=== PATIENT | male | born 1950 | race Caucasian/White ===

== ENCOUNTER 2020-11-13 13:47 | Inpatient (IN) | payer OTHER ==
--- OUTSIDE RECORDS SUMMARY | 2020-11-13 13:50 | XMS REPORT | Continuity of Care Document ---
:1950 Author Organization [facility] t Address [address] [place] [address] Care Team Providers Name Role Phone Ramona CARDENAS Primary Care Physician Ramona CARDENAS Attending Clinician Problems Condition Condition Condition Status Onset Resolution Last Treating Co mments Source Name Details Category Date Date Treatment Clinician Date Uncontroll Uncontroll Diagnosis Active [facility] ed type 2 ed type 2 [facility] - diabetes diabetes Memori a mellitus mellitus l without without Outpati complicati complicati en t on, on, Clinics without without long-term long-term current current use of use of insulin insulin Neck pain Neck pain Problem [facility] Hyperlipid Hyperlipid Problem Active [facility] Obesity Obesity Problem Active [facility] (BMI (BMI [facility] - 35.0-39.9 35.0-39.9 Rodney edgard without without l comorbidit comorbidit Ou tpati y) y) ent Clinics Allergic Allergic Problem [facility] Hypertensi Hypertensi Diagnosis Active [facility] on, on, [facility] - unspecifie unspecifie Me moria d type d type l Outpati ent Clinics Type 2 Type [address] [facility] diabetes diabetes [facility] - mellitus mellitus Memori a l [facility] ent Clinics Chronic Chronic Diagnosis Active [facility] kidney kidney [facility] - disease, disease, Memori a unspecifie unspecifie l d CKD d CKD Outpati stage stage ent Clinics Plantar Plantar Problem Active [facility] fasciitis, fasciitis, Yennifer kes - bilateral bilateral Rodney edgard l Outpati ent Clinics Other Other Problem Active [facility] chronic chronic [facility] - pain pain Memoria l [facility] ent Clinics Low back Low back Problem Active [facility] Acute pain Acute pain Problem Active [facility] of right of right [facility] - shoulder shoulder Memori a l [facility] ent Clinics Rash and Rash and Diagnosis Active [facility] nonspecifi nonspecifi Yennifer kes - c skin c skin Memoria eruption eruption l [facility] ent [facility] Allergies, Adverse Reactions, Alerts Allergy Allergy Status Severity Reaction(s) Onset Inactive Treating Comm ents Source Name Type Date Date Clinician penicill Adverse Active Info Not [facility] Reaction Available [facility] Social History Social Habit Start Date Stop Date Quantity Comments Source Sex Assigned At [birth year] [facility] ethodist 00:00:00 00:00:00 Medications Ordered Filled Start Stop Current Ordering Indication Dosage Frequency Signature Comments Components Source Medication Medication Date Date Medication? Clinician (SIG) Name Name Ketoconazol Ketoconazol 2019-0 2020- No Lyric [address] [facility] e e 03-21 Millender applicatio Dawna es - 00:00: 00:00 n to Memoria 00 :00 affected l [facility] Losartan Losartan 2017- Yes Lyric 1/[address] [facility] Potassium Potassium 2-03 Millender [facility] - 00:00: Memoria 00 l [facility] ent Clinics Nasacort AQ Nasacort AQ Yes Lyric not [facility] Mill[facility] defined [facility] Triamcinolo Triamcinolo Yes Lyric not [facility] ne ne Millender defined [facility] - Acetonide(N Acetonide(N M emoria jd) jd) l [facility] ent Clinics Januvia Januvia Yes Lyric [address] [facility] [address] [facility] Simvastatin Simvastatin Yes Lyric [address] [facility] [address] Millender in the [facility] - evening Memoria l [facility] ent Clinics Sudafed Sudafed Yes Lyric [address] [facility] [address] Millender as needed [facility] Zetia Zetia Yes Lyric [address] [facility] [facility] Duexis Duexis Yes Lyric [address] [facility] Metformin Metformin Yes Lyric [address] [facility] HCl HCl [facility] Aspir-Low Aspir-Low Yes Lyric [address] [facility] [address] [facility] Jardiance Jardiance 2020- No Lyric [address] [facility] [address] 08- Millender [facility] - 00:00 Memoria :00 l Outpati ent Clinics Procedures Procedure Date / Time Performed Performing Clinician [facility] e US VASCULAR SCREENING 2020-09-14 08:59:47 [facility] HEART SCAN PLUS CT HEART SCAN PLUS W 2020-09-14 07:49:18 [facility] PHYSICIAN ORDER Plan of Care Planned Activity Planned Date Details Comments Source Future Scheduled 2021-02-10 INFLUENZA VACCINE [facility] 00:00:00 [code = INFLUENZA VACCINE] Future Scheduled 2015 65+ PNEUMOCOCCAL [facility] Test 00:00:00 VACCINE (1 of 1 - PPSV23) [code = 65+ PNEUMOCOCCAL VACCINE (1 of 1 - PPSV23)] Future Scheduled 2000 COLONOSCOPY SCREENING [facility] 00:00:00 [code = COLONOSCOPY SCREENING] Future Scheduled 2000 [facility] [code = SHINGLES VACCINES (#1)] Future Scheduled 1968 Hepatitis C screening [facility] Test 00:00:00 (procedure) [code = 629257924] Future Scheduled 1966 COVID-19 VACCINE (1) [facility] 00:00:00 [code = COVID-19 VACCINE (1)] Encounters Start End Encounter Admission Attending Care Care Encounter Source Date/Time Date/Time Type Type Clinicians Facility Department ID 2020-09-14 2020-09-14 Outpatient [facility] [id number] [place] 00:00:00 00:00:00 [facility] [address] 2020-09-14 2020-09-14 Outpatient [facility] [id number] [place] 00:00:00 00:00:00 [facility] [address] 2020-03-21 2020-03-21 [facility] [id number] [address] 08:20:00 08:20:00 t [facility] Medicine Outpati ent Clinics 2020-03-13 2020-03-13 [facility] [id number] [address] 15:17:00 15:17:00 t [facility] Medicine Outpati ent Clinics 2019-10-31 2019-10-31 [facility] [id number] 08:30:00 08:30:00 t [facility] Medicine Outpati ent Clinics 2019-05-18 2019-05-18 [facility] [id number] 10:40:00 10:40:00 t [facility] Medicine Outpati ent Clinics 2019-03-09 2019-03-09 [facility] [id number] 16[facility]20:00 16:20:00 [facility] Medicine Outpati ent Clinics 2018-08-20 2018-08-20 [facility] [id number] [facility] 10:13:00 10:13:00 [facility] Medicine Outpati ent Clinics 2018-07-07 2018-07-07 [facility] [id number] [address] 23:17:00 23:17:00 [facility] Medicine Outpati ent Clinics 2018-07-07 2018-07-07 [facility] [id number] 16:30:00 16:30:00 [facility] Medicine Outpati ent Clinics 2018-01-01 2018-01-01 [facility] [id number] 10:00:00 10:00:00 [facility] Medicine Outpati ent Clinics Results Test Description Test Time Test Comments Results Result Sourc e Comments Pv vascular Interface, Radiology Deb mon screening heart 5 Results In - [facility] scan plus (self 11:57:00 09/14/2020 11:57 AM pay) [facility] Vascular Diagnostic Laboratory Screening Report [id number] [address] Pat.Name: MEGAN RIAN.ID: [id number] .Date: 09/14/2020 Refer.: KM GREENE MD Exam Time: 8:03:00 AM Study Type:Screening Age: 11 1950,70Y Sex: MALE Sonogrphr: Marichuy Nunez RVT Pat. Stat.:Outpatient Room: F9 Tape Vol: ym, Echo Event ID:[id number] Order ID: [id number] Reason for Study:Screening. Procedures: Ankle/brachial pressures, Colorflow, Grayscale/2D,Non-imagi ng continuous wave Doppler, Pulsed wave Doppler S UMMARY: V ascular Screening ResultsScreening results are brief snapshots designed to detect functionalabnormal findings of carotid artery disease, abdominal aorticaneurysms (AAA), and peripheral arterial disease (PAD). Please Note: Screening results do not replace a complete vascularexamination.Ca rotid ArteryRight Internal Carotid Artery (X) Abnormal: Plaque present but no stenosis Left Internal Carotid Artery (X) Abnormal: Plaque present but no stenosis.Abdominal Aorta(X) Normal: No evidence of aneurysmal dilatation (less than 3cm).Ankle/Brachial Index(X) Normal: No evidence of peripheral arterial disease (PAD).Recommendations Your results are ABNORMAL. Please take these results to yourphysician and discuss them in further detail. If you do not have a physician you can call our [facility] to schedule an appointment at [phone].--------- -----FINDINGS:-------- ------Signed 09/14/2020 11:57 Adrian Hinkle MD, RPVI
[2020-11-13 14:47] VITALS: BMI 35.5
[2020-11-13] MEDS ORDERED: ACETAMINOPHEN 325 MG TABLET PO PRN (15:00)
[2020-11-13] MEDS ORDERED: ONDANSETRON 4 MG (ODT) TAB PO PRN (15:00)
[2020-11-13] MEDS ORDERED: POLYETHYL GLY 3350 17 GM/DOSE PO PRN (15:00)
[2020-11-13] MEDS ORDERED: LOPERAMIDE HCL 2 MG CAPSULE PO PRN (15:00)
[2020-11-13] MEDS ORDERED: ONDANSETRON 4 MG/2 ML VIAL IV PRN (15:00)
[2020-11-13] MEDS ORDERED: GLUCAGON 1 MG/VIAL IM PRN (15:19)
[2020-11-13] MEDS ORDERED: D50W 25 GM/50 ML SYRINGE IV PRN (15:19)
[2020-11-13 16:15] LABS: Absolute Lymphocytes (CBC) 1.7 K/uL (0.7-4.9); Basophils % 0.5 % (0-1.3); Hematocrit 42.4 % (39.6-49.0); Lymphocytes % 12.5 % (15.3-44.8); MPV 7.3 fL (7.6-11.3)
[2020-11-13] MEDS: INSULIN -REGULAR HUMAN 50 UNIT/0.5 ML ML SQ SCH ×2 (16:30→20:52)
[2020-11-13 16:33] LABS: Protime INR 1.45
[2020-11-13 16:59] LABS: Albumin 3.5 g/dL (3.4-5.0); Bilirubin Direct 0.2 mg/dL (0-0.2); Bilirubin Total 0.5 mg/dL (0.2-1.0); Magnesium 2.2 mg/dL (1.8-2.4); Phosphorus 2.8 mg/dL (2.5-4.9); Potassium 3.5 mmol/L (3.5-5.1); Protein, Total 7.4 g/dL (6.4-8.2); Thyroid Stimulating Hormone 1.54 uIU/mL (0.360-3.740)
[2020-11-13 17:25] LABS: Urine Appearance CLEAR (Clear); Urine Bilirubin NEGATIVE (Negative); Urine Blood NEGATIVE (Negative); Urine Color ORANGE (Yellow); Urine Glucose NEGATIVE (Negative); Urine Protein NEGATIVE (Negative); Urine Specific Gravity <=1.005 (1.005-1.030)
[2020-11-13 17:40] LABS: Urine Microscopic Reflex ORDER UMIC
[2020-11-13 17:48] LABS: Urine Bacteria <20 /HPF (NONE SEEN); Urine RBC <5 /HPF (NONE SEEN)
--- NOTE | 2020-11-13 18:25 | RAD REPORT ---
EXAM DESCRIPTION: CT - Chest Abdomen Pelvis W Cont - 11/13/2020 5:58 pm CLINICAL HISTORY: Chest and abdominal pain COMPARISON: None TECHNIQUE: Computed axial tomography of the chest, abdomen and pelvis was obtained. 100 cc Isovue-30 0 was administered intravenously. Oral contrast was not requested. This limits evaluation of bowel. All CT scans are performed using dose optimization technique as appropriate and may include automated exposure control or mA/KV adjustment according to patient size. FINDINGS: Lungs are clear. No mediastinal or hilar lymphadenopathy. No pleural effusion. No pericardial effusion. Fatty liver. Small hepatic cyst. Spleen, pancreas, adrenals and kidneys unremarkable Diverticula stem from the colon without evidence of diverticulitis. The prostate gland is mildly to moderately enlarged. Spondylosis involves the lumbar spine resulting spinal stenosis Umbilical hernia contains fat. The neck measures 18 millimeters Mild gallbladder distention IMPRESSION: Mild gallbladder distention
--- NOTE | 2020-11-13 18:30 | RAD REPORT ---
EXAM DESCRIPTION: Jenny Stapleton (2 Views)11/13/2020 6:04 pm CLINICAL HISTORY: Sepsis COMPARISON: None FINDINGS: The lungs appear clear of acute infiltrate. The heart is normal size IMPRESSION: No acute abnormalities displayed
[2020-11-13] MEDS: NACHLORIDE 0.45% 1,000 ML IV SCH (18:52)
[2020-11-13] MEDS: CIPROFLOXACIN 400mg IV 400 MG/200 ML BAG IV SCH (18:52)
[2020-11-13] MEDS: TRAMADOL HCL 50 MG TAB PO PRN (20:49)
[2020-11-13] MEDS: DIPHENHYDRAMINE 25 MG TAB/CAP PO PRN (20:53)
--- NOTE | 2020-11-13 21:32 | P.HP ---
Certification for Inpatient Patient admitted to: Observation Practitioner: I am a practitioner with admitting privileges, knowledge of patient current condition, hospital course, and medical plan of care. Services: Services provided to patient in accordance with Admission requirements found in Title 42 Section 412.3 of the Code of Federal Regulations Patient History Date of Service: 11/13/20 Reason for admission: FEVER, CHILLS, DIAPHORESIS History of Present Illness: MR. RAIN HAS UTI SYMPTOMS AND DAUGHTER CALLED HE DID NOT IMPROVE ON CIPRO I GAVE HIM TWO DAYS AGO. HE IS FATIGUED AND CONTINUES TO HAVE FEVER. DAUGHTER IS A NURSE. HE IS A DIABETIC. Allergies Penicillins Allergy (Verified 05/22/16 11:25) Nausea/Vomiting Home Medications: Aspirin [Aspirin EC 81 MG] 81 mg PO DAILY 05/17/14 Ezetimibe/Simvastatin [Vytorin 10-20 mg Tablet] 1 each PO DAILY 05/17/14 Metformin ER [Glucophage ER*] 500 mg PO TID 05/17/14 Cinnamon Bark [Cinnamon] 500 mg PO DAILY 05/22/16 Sitagliptin Phosphate [Januvia*] 50 mg PO DAILY 05/22/16 - Past Medical/Surgical History Has patient received pneumonia vaccine in the past: Yes Diabetic: Yes -: On QUINTON to protect kidneys -: Hypercholesterolima - Social History Smoking Status: Current every day smoker Alcohol use: No CD- Drugs: No Caffeine use: Yes Place of Residence: Home Review of Systems 10-point ROS is otherwise unremarkable General: Weakness, Malaise Physical Examination - Vital Signs Temperature: 97.3 F Blood Pressure: 112/55 Pulse: 71 Respirations: 16 Pulse Ox (%): 95 - Physical Exam General: Oriented x3, Mild distress HEENT: Atraumatic, PERRLA, Mucous membr. moist/pink, EOMI, Sclerae nonicteric Neck: Supple, 2+ carotid pulse no bruit, No LAD, Without JVD or thyroid abnormality Respiratory: Clear to auscultation bilaterally, Normal air movement Cardiovascular: Regular rate/rhythm, Normal S1 S2 Gastrointestinal: Normal bowel sounds, No tenderness Musculoskeletal: No tenderness Integumentary: No rashes Neurological: Normal gait, Normal speech, Normal strength at 5/5 x4 extr, Normal tone, Normal affect Lymphatics: No axilla or inguinal lymphadenopathy - Studies Laboratory Data (last 24 hrs) 11/13/20 15:54: Sodium 137, Potassium 3.5, BUN 20 H, Creatinine 1.12, Glucose 122 H, Phosphorus 2.8, Magnesium 2.2, Total Bilirubin 0.5, AST 16, ALT 30, Alkaline Phosphatase 56 11/13/20 15:54: PT 16.7 H, INR 1.45, APTT 27.7 11/13/20 15:54: WBC 13.70 H, Hgb 13.8, Hct 42.4, Plt Count 203 Assessment and Plan - Problems (Diagnosis) (1) UTI (urinary tract infection) Current Visit: Yes Status: Acute Qualifiers: Urinary tract infection type: acute cystitis Hematuria presence: without hematuria Qualified Code(s): N30.00 - Acute cystitis without hematuria (2) Dehydration Current Visit: Yes Status: Acute Plan: CIPRO IV. CT SCAN NEG FOR PYELONEPHRITIS BUT SHOWS GALL BLADDER DISTENSION. (3) Diabetes Current Visit: Yes Status: Acute Plan: A1C IS 7. Qualifiers: Diabetes mellitus type: type 2 (4) Gallbladder disease Current Visit: Yes Status: Acute Plan: SYMPTOMS OF INFECTION BUT ABDOMEN IS NOT TENDER. ORDER SONOGRAM IN AM. DIABETICS CAN HAVE ACALCULUS CHOLECYSTITIS. - Advance Directives Does patient have a Living Will: Yes Does patient have a Durable POA for Healthcare: Yes
[2020-11-13 22:09] LABS: MPV 7.3 fL (7.6-11.3)
[2020-11-13 22:14] LABS: Platelet Estimate ND
[2020-11-14] MEDS: CIPROFLOXACIN 400mg IV 400 MG/200 ML BAG IV SCH ×3 (00:14→20:29)
[2020-11-14] MEDS: NACHLORIDE 0.45% 1,000 ML IV SCH ×2 (04:20→15:52)
[2020-11-14 05:02] LABS: Absolute Lymphocytes (CBC) 1.6 K/uL (0.7-4.9); Basophils % 0.2 % (0-1.3); Hematocrit 39.3 % (39.6-49.0); Lymphocytes % 13.8 % (15.3-44.8); MPV 7.4 fL (7.6-11.3); RBC Red Blood Cell Count 4.34 M/uL (4.33-5.43)
[2020-11-14 05:09] LABS: Magnesium 2.2 mg/dL (1.8-2.4); Potassium 3.9 mmol/L (3.5-5.1)
[2020-11-14] MEDS: INSULIN -REGULAR HUMAN 50 UNIT/0.5 ML ML SQ SCH ×4 (07:30→21:00)
[2020-11-14] MEDS: ENOXAPARIN 40 MG/0.4 ML SQ SCH (08:06)
[2020-11-14] MEDS ORDERED: POTASSIUM 25 MEQ EFFERV TAB PO ONE (09:34)
--- NOTE | 2020-11-14 10:10 | RAD REPORT ---
EXAM DESCRIPTION: US - Abdomen Exam Complete - 11/14/2020 9:22 am CLINICAL HISTORY: Abdominal pain COMPARISON: CT November 13, 2020 FINDINGS: The liver has an increased echotexture. Several cysts. The largest measures 17 millimeters A gallstone is not seen. The gallbladder wall is not thickened. The biliary tree is normal caliber. T he gallbladder is mildly distended. The pancreas is normal in size and echotexture The right kidney measures 12 centimeters with a normal echotexture. The left kidney measures 12 centimeters with a normal echotexture. The spleen measures 12 centimeters. The abdominal aorta and inferior vena cava appear unremarkable IMPRESSION: Increased hepatic echotexture consistent with fatty infiltration Mild gallbladder distention. A stone is not visualized
[2020-11-14] MEDS: TRAMADOL HCL 50 MG TAB PO PRN ×2 (10:13→20:29)
[2020-11-14] MEDS ORDERED: D50W 25 GM/50 ML VIAL IV PRN (15:00)
--- NOTE | 2020-11-14 19:25 | CON ---
Date of Consultation: 11/14/2020 Reason For Consultation: Gallbladder disease. History Of Present Illness: This is a case of a male who was admitted to the hospital with complaint s of fever, chills, diaphoretic. Initially, he was being treated for the possible UTI with antibioti cs. Since the symptoms did not improve, the patient was admitted to the hospital for continued obser vation and working the differential diagnosis. During the workup, the patient had a CAT scan done th at shows a distended gallbladder, and the working diagnosis of probably cholecystitis was then introd uced, and a surgical consult was obtained for more evaluation and advice. Past Medical History: Includes diabetes. Allergies: PENICILLIN. Medications: Aspirin, Vytorin, Glucophage. Social History: He smokes. He does not drink alcohol. He was counseled about smoking cessation. He never had a colonoscopy, although he was advised the importance of having colonoscopies. Review of Systems: As above. He denies at this moment any shortness of breath. Denies any melena. He states some urin yuli frequency, hesitancy and urgency. Ten points otherwise unremarkable. Physical Examination: General: The patient is awake and alert. HEENT: Pupils are equal and reactive, anicteric. Neck: Supple. Chest: Clear. Abdomen: Soft and depressible. He describes the pain as being over the upper abdomen, epigastric, l eft upper quadrant, also some tenderness in the suprapubic left lower quadrant area. There is no gua rding or rebound. Extremities: Good capillary refill. Rectal: Fair. Laboratory Data: Blood work shows WBC count of 13, with hemoglobin of 13.8. INR is 1.45, potassium is 3.9, glucose 136, total bilirubin of 0.5. CAT scan of the abdomen and pelvis interpreted by Dr. Bee yun as prostate gland is mildly to moderately enlarged, his umbilical hernia, mild distention of t he gallbladder. The patient had an abdominal ultrasound that shows a fatty liver and shows mild gall bladder distention. Stone is not visualized. Assessment: A 70-year-old patient with multiple problems. He came with the clinical symptoms of naida ng diaphoretic and fever, also with lower abdominal symptoms that I agree with Dr. Greene suspect for a UTI and complications from that. At the same time, patient has on and off abdominal pain in the up per abdomen, and then we found the gallbladder to be distended. With all this pictures and trying to rule out any source of sepsis, then, I believe a HIDA scan should be ordered too. We are looking fo r cholecystitis. We are looking for biliary dyskinesia. I will follow the patient with you and give more recommendations as the case develops. FESTUS/JESSICA Voice ID: [id number] Report ID: [id number]
--- NOTE | 2020-11-14 19:56 | P.PN ---
Subjective Date of Service: 11/14/20 Chief Complaint: FEVER, CHILLS, DIAPHORESIS Subjective: Improving HE IS STABLE CLINICALLY. HE HAS NO PAIN IN ABDOMEN NOW. Review of Systems 10-point ROS is otherwise unremarkable General: Weakness Physical Examination - Vital Signs Temperature: 97.7 F Blood Pressure: 135/61 Pulse: 76 Respirations: 20 Pulse Ox (%): 96 - Physical Exam General: Oriented x3, Mild distress, Obese HEENT: Atraumatic, PERRLA, EOMI Neck: Supple, JVD not distended Respiratory: Clear to auscultation bilaterally, Normal air movement Cardiovascular: Regular rate/rhythm, Normal S1 S2 Gastrointestinal: Normal bowel sounds, No tenderness Musculoskeletal: No tenderness Integumentary: No rashes Neurological: Normal speech, Normal tone, Normal affect Lymphatics: No axilla or inguinal lymphadenopathy - Studies Laboratory Data (last 24 hrs) 11/14/20 04:17: Sodium 136, Potassium 3.9, BUN 15, Creatinine 0.89, Glucose 136 H, Magnesium 2.2 11/14/20 04:17: WBC 12.00 H, Hgb 13.1 L, Hct 39.3 L, Plt Count 183 11/13/20 21:26: Plt Count 200 Microbiology Data (last 24 hrs): 11/13/20 15:54 Blood - Blood Gram Stain - Final Medications List Reviewed: Yes Assessment And Plan - Current Problems (Diagnosis) (1) UTI (urinary tract infection) Current Visit: Yes Status: Acute Plan: IV ABX. STABLE. CULTURE PENDING. Qualifiers: Urinary tract infection type: acute cystitis Hematuria presence: without hematuria Qualified Code(s): N30.00 - Acute cystitis without hematuria (2) Dehydration Current Visit: Yes Status: Acute Plan: CIPRO IV. CT SCAN NEG FOR PYELONEPHRITIS BUT SHOWS GALL BLADDER DISTENSION. (3) Diabetes Current Visit: Yes Status: Acute Plan: A1C IS 7. Qualifiers: Diabetes mellitus type: type 2 (4) Gallbladder disease Current Visit: Yes Status: Acute Plan: SYMPTOMS OF INFECTION BUT ABDOMEN IS NOT TENDER. ORDER SONOGRAM IN AM. DIABETICS CAN HAVE ACALCULUS CHOLECYSTITIS. SONOGRAM CONFIRMS ENLARGED GB HIDA SCAN PENDING. DR. DURAND CONSULTED.
[2020-11-14] MEDS: ROSUVASTATIN 10 MG TAB PO SCH (20:29)
[2020-11-14] MEDS: DIPHENHYDRAMINE 25 MG TAB/CAP PO PRN (20:29)
[2020-11-14] MEDS ORDERED: HOME MED 1 EA UNK (Rosuvastatin Calcium [Rosuvastatin Calcium] 20 MG Tablet) PO SCH (21:00)
[2020-11-15] MEDS: NACHLORIDE 0.45% 1,000 ML IV SCH ×2 (04:17→20:20)
[2020-11-15 05:32] LABS: Absolute Lymphocytes (CBC) 1.4 K/uL (0.7-4.9); Basophils % 0.2 % (0-1.3); Hematocrit 39.9 % (39.6-49.0); Lymphocytes % 17.2 % (15.3-44.8); MPV 7.5 fL (7.6-11.3)
[2020-11-15 05:40] LABS: BUN Blood Urea Nitrogen 11 mg/dL (7-18); Bicarbonate 27 mmol/L (21-32); Glucose Level 143 mg/dL (74-106); Magnesium 2.2 mg/dL (1.8-2.4); Potassium 3.8 mmol/L (3.5-5.1); Sodium Level 139 mmol/L (136-145)
[2020-11-15] MEDS: INSULIN -REGULAR HUMAN 50 UNIT/0.5 ML ML SQ SCH ×4 (07:30→21:00)
[2020-11-15] MEDS ORDERED: HOME MED 1 EA UNK (Sitagliptin Phos/Metformin Hcl [Janumet 50-1,000 Mg Tablet] Tablet) PO SCH (09:00)
[2020-11-15] MEDS: Cinnamon Bark 500 MG Capsule PO SCH (09:00)
[2020-11-15] MEDS ORDERED: HOME MED 1 EA UNK (Losartan Potassium [Cozaar] 25 MG Tablet) PO SCH (09:00)
[2020-11-15] MEDS: SITAGLIPTIN PHOS 100 MG TAB PO SCH (09:07)
[2020-11-15] MEDS: LOSARTAN POTASSIUM 50 MG TABLET PO SCH (09:07)
[2020-11-15] MEDS: METFORMIN HCL 500 MG TAB PO SCH (09:07)
[2020-11-15] MEDS: ASPIRIN EC 81 MG TAB PO SCH (09:07)
[2020-11-15] MEDS: ENOXAPARIN 40 MG/0.4 ML SQ SCH (09:08)
[2020-11-15] MEDS: CIPROFLOXACIN 400mg IV 400 MG/200 ML BAG IV SCH ×2 (09:09→21:30)
--- NOTE | 2020-11-15 09:20 | RAD REPORT ---
EXAM DESCRIPTION: NM - Hepatobiliary System Imagin - 11/15/2020 8:47 am CLINICAL HISTORY: enlarged GB Abdominal pain COMPARISON: No comparisons TECHNIQUE: The patient was administered approximately 7 mCi Tc99m Choletec. Imaging of the right upp er quadrant was performed initially for up to 60 minutes. Gallbladder ejection fraction determination was then performed utilizing 6 ounces of ice cream. FINDINGS: Normal hepatic uptake and excretion with appropriate clearance of background blood pool ac tivity. Normal visualization of biliary and small bowel activity. Gallbladder visualizes within normal time limits. The calculated ejection fraction is 30% (normal gre ater than 35%). Subjective pain reported by the patient: Pre-procedure - none During or subsequent to 6 ounces of ice cream - none IMPRESSION: Patient cystic duct and patent sphincter of Oddi. No delay in visualization of the gallb ladder, biliary tree, or duodenum. Ejection fraction is 30% (normal greater than 35%). Subjective patient pain assessment as detailed above.
[2020-11-15] MEDS ORDERED: POTASSIUM 25 MEQ EFFERV TAB PO ONE (12:00)
[2020-11-15] MEDS: TRAMADOL HCL 50 MG TAB PO PRN (12:32)
[2020-11-15 20:22] VITALS: O2SAT 97
[2020-11-15] MEDS ORDERED: NACHLORIDE 0.45% 1,000 ML IV SCH (20:27)
--- NOTE | 2020-11-15 21:02 | P.PN ---
Subjective Date of Service: 11/15/20 Chief Complaint: FEVER, CHILLS, DIAPHORESIS Subjective: Improving HE IS STABLE CLINICALLY. HE HAS NO PAIN IN ABDOMEN NOW. STILL PAIN AT URINATION. Review of Systems 10-point ROS is otherwise unremarkable Physical Examination - Vital Signs Temperature: 97 F Blood Pressure: 129/61 Pulse: 65 Respirations: 20 Pulse Ox (%): 96 - Physical Exam General: Oriented x3, Mild distress, Obese HEENT: Atraumatic, PERRLA, EOMI Neck: Supple, JVD not distended Respiratory: Clear to auscultation bilaterally, Normal air movement Cardiovascular: Regular rate/rhythm, Normal S1 S2 Gastrointestinal: Normal bowel sounds, No tenderness Musculoskeletal: No tenderness Integumentary: No rashes Neurological: Normal speech, Normal tone, Normal affect Lymphatics: No axilla or inguinal lymphadenopathy - Studies Laboratory Data (last 24 hrs) 11/15/20 04:59: Sodium 139, Potassium 3.8, BUN 11, Creatinine 0.76, Glucose 143 H, Magnesium 2.2 11/15/20 04:59: WBC 8.40 D, Hgb 13.0 L, Hct 39.9, Plt Count 228 D Microbiology Data (last 24 hrs): 11/13/20 15:54 Blood - Blood Gram Stain - Final Medications List Reviewed: Yes Assessment And Plan - Current Problems (Diagnosis) (1) UTI (urinary tract infection) Current Visit: Yes Status: Acute Plan: IV ABX. STABLE. CULTURE PENDING. CULTURE PENDING BC 1 POSITIVE BUT MAY BE CONTAMINANT. REPEAT BC. Qualifiers: Urinary tract infection type: acute cystitis Hematuria presence: without hematuria Qualified Code(s): N30.00 - Acute cystitis without hematuria (2) Dehydration Current Visit: Yes Status: Acute Plan: CIPRO IV. CT SCAN NEG FOR PYELONEPHRITIS BUT SHOWS GALL BLADDER DISTENSION. (3) Diabetes Current Visit: Yes Status: Chronic Plan: A1C IS 7. WILL FU. THEY DON'T WANT TO FOLLOW ANY DIET TO LOSE WEIGHT. Qualifiers: Diabetes mellitus type: type 2 (4) Gallbladder disease Current Visit: Yes Status: Acute Plan: SYMPTOMS OF INFECTION BUT ABDOMEN IS NOT TENDER. ORDER SONOGRAM IN AM. DIABETICS CAN HAVE ACALCULUS CHOLECYSTITIS. SONOGRAM CONFIRMS ENLARGED GB HIDA SCAN PENDING. DR. DURAND CONSULTED.
[2020-11-15] MEDS: ROSUVASTATIN 10 MG TAB PO SCH (21:30)
[2020-11-15] MEDS: SMZ./TMP. 800/160 MG TABLET PO SCH (21:31)
[2020-11-15] MEDS: DIPHENHYDRAMINE 25 MG TAB/CAP PO PRN (21:36)
--- NOTE | 2020-11-15 23:59 | CON ---
Reason For Consultation: Urinary retention. History Of Present Illness: Mr. Thompson is a 70-year-old gentleman with well- controlled type 2 diabetes, A1c less than 7.0, who developed dysuria on Thursday that eventually progressed to fever and chills with night sweats and altered mental status, which prompted his presentation to the emergency department and hospital admission on Thursday. He has a long-standing history of obstructive lower urinary symptoms of frequency, urgency, sense of incomplete emptying, weak stream and occasional need to strain to void as well as nocturia. He acknowledges a history of prostatitis about 10 years ago, but he has never been treated for any prostatic urethral obstruction. He denies any underlying neurologic disorder or dysfunction or sign or symptom of neuropathy noting his A1c is well controlled. Since his admission, he has been started on Flomax by Dr. Greene and a bladder scan postvoid residual assessment was 197 and repeated 213. Urine culture taken on 11/13/2020 revealed no growth. Blood cultures are still pending, but preliminarily with no growth. On admission, he had an elevated white count of 13.7 that has progressively declined over the last couple of days. He has been treated with IV ciprofloxacin as well as subcutaneous Lovenox for DVT prophylaxis and the Flomax as previously mentioned. His renal function is normal with a creatinine of 0.76. Past Medical History: Hypertension and diabetes type 2. Past Surgical History: The patient denies any abdominal surgery. Allergies: PENICILLIN. Physical Examination: General: On examination, the patient is alert, awake, and oriented x3, in no acute distress. He is lying comfortably in the bed with his family around him. He acknowledges being able to void though with some difficulty. Genital exam and digital rectal exam deferred at this time because of the patient's family members around him with plans to perform them on followup in the office. Imaging: CT scan was performed as well as renal ultrasound, which revealed absence of any hydronephrosis or upper tract calculus and no other pelvic pathology noted. Assessment And Recommendation: Mr. 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 I agree with Flomax 0.4 mg daily, and we will avoid placing a Thomas catheter at this time since the patient is voiding adequately. Ciprofloxacin certainly is a reasonable antimicrobial choice in the setting, especially the patient has not taken it previously. However, if slow to resolve, he may benefit from an oral third generation cephalosporin. Followup recommended to include a cystoscopy and digital rectal exam. If he has any PSA testing performed in the last year that would be reviewed or can be ordered on that visit. NIKO/JESSICA Voice ID: [id number] Report ID: [id number] MTDD
[2020-11-16 05:10] VITALS: BP 128/60; TEMP 97.5
[2020-11-16 05:25] LABS: Absolute Lymphocytes (CBC) 1.6 K/uL (0.7-4.9); Basophils % 0.5 % (0-1.3); Hematocrit 39.2 % (39.6-49.0); Lymphocytes % 22.9 % (15.3-44.8); MPV 7.4 fL (7.6-11.3); RBC Red Blood Cell Count 4.37 M/uL (4.33-5.43)
[2020-11-16 05:42] LABS: BUN Blood Urea Nitrogen 10 mg/dL (7-18); Bicarbonate 29 mmol/L (21-32); Glucose Level 149 mg/dL (74-106); Magnesium 2.2 mg/dL (1.8-2.4); Potassium 4.1 mmol/L (3.5-5.1); Sodium Level 139 mmol/L (136-145)
[2020-11-16] MEDS: INSULIN -REGULAR HUMAN 50 UNIT/0.5 ML ML SQ SCH (07:30)
[2020-11-16] MEDS: LOSARTAN POTASSIUM 50 MG TABLET PO SCH (08:24)
[2020-11-16] MEDS: METFORMIN HCL 500 MG TAB PO SCH (08:24)
[2020-11-16] MEDS: ASPIRIN EC 81 MG TAB PO SCH (08:24)
[2020-11-16] MEDS: SITAGLIPTIN PHOS 100 MG TAB PO SCH (08:27)
[2020-11-16] MEDS: SMZ./TMP. 800/160 MG TABLET PO SCH (08:48)
[2020-11-16] MEDS: CIPROFLOXACIN 400mg IV 400 MG/200 ML BAG IV SCH (08:49)
[2020-11-16] MEDS: Cinnamon Bark 500 MG Capsule PO SCH (08:49)
[2020-11-16] MEDS: ENOXAPARIN 40 MG/0.4 ML SQ SCH (08:50)
[2020-11-16] MEDS ORDERED: TAMSULOSIN 0.4 MG SR CAP PO SCH (18:00)
--- NOTE | 2020-11-16 20:02 | P.DS ---
Admission Date: 11/15/20 Discharge Date: 11/16/20 Disposition: AL HOME/HOME HEALTH CARE Discharge Condition: FAIR Reason for Admission: FEVER, CHILLS, DIAPHORESIS - Problems (1) UTI (urinary tract infection) Status: Acute Qualifiers: Urinary tract infection type: acute cystitis Hematuria presence: without hematuria Qualified Code(s): N30.00 - Acute cystitis without hematuria (2) Dehydration Status: Acute (3) Diabetes Status: Chronic Qualifiers: Diabetes mellitus type: type 2 (4) Gallbladder disease Status: Acute Brief History of Present Illness: MR. RAIN HAS UTI SYMPTOMS AND DAUGHTER CALLED HE DID NOT IMPROVE ON CIPRO I GAVE HIM TWO DAYS AGO. HE IS FATIGUED AND CONTINUES TO HAVE FEVER. DAUGHTER IS A NURSE. HE IS A DIABETIC. Hospital Course: MR CAMARGO HAD UTI SS WITH NO IMPROVEMENT AT HOME. HE HAD CT SCAN SHOWED GB ENLARGED BUT HIDA SCAN WAS NORMAL. HE HAS PVR OF 196 ML. AFTER FLOMAX HE FELT A LOT BETTER AND IS DISCHARGED IN STABLE CONDITION. LAST PSA IS IN OCTOBER 0.8 Vital Signs/Physical Exam: Temp Pulse Resp BP Pulse Ox 97.5 F 69 17 128/60 97 11/16/20 04:00 11/16/20 04:00 11/16/20 04:00 11/16/20 04:00 11/16/20 04:00 Laboratory Data at Discharge: WBC 7.00 K/uL (4.3-10.9) D 11/16/20 05:00 Hgb 13.0 g/dL (13.6-17.9) L 11/16/20 05:00 Hct 39.2 % (39.6-49.0) L 11/16/20 05:00 Plt Count Cancelled 11/16/20 21:00 PT 16.7 SECONDS (9.5-12.5) H 11/13/20 15:54 INR 1.45 11/13/20 15:54 APTT 27.7 SECONDS (24.3-36.9) 11/13/20 15:54 Sodium 139 mmol/L (136-145) 11/16/20 05:00 Potassium 4.1 mmol/L (3.5-5.1) 11/16/20 05:00 BUN 10 mg/dL (7-18) 11/16/20 05:00 Creatinine 0.83 mg/dL (0.55-1.3) 11/16/20 05:00 Glucose 149 mg/dL (74-106) H 11/16/20 05:00 Phosphorus 2.8 mg/dL (2.5-4.9) 11/13/20 15:54 Magnesium 2.2 mg/dL (1.8-2.4) 11/16/20 05:00 Total Bilirubin 0.5 mg/dL (0.2-1.0) 11/13/20 15:54 AST 16 U/L (15-37) 11/13/20 15:54 ALT 30 U/L (12-78) 11/13/20 15:54 Alkaline Phosphatase 56 U/L (45-117) 11/13/20 15:54 Home Medications: Aspirin [Aspirin EC 81 MG] 81 mg PO DAILY 05/17/14 Cinnamon Bark [Cinnamon] 500 mg PO DAILY 05/22/16 Losartan Potassium [Cozaar] 25 mg PO DAILY 11/14/20 Rosuvastatin Calcium 20 mg PO BEDTIME 11/14/20 Sitagliptin Phos/Metformin HCl [Janumet 50-1,000 mg Tablet] 1 each PO DAILY Ciprofloxacin HCl [Cipro 500 MG Tablet] 500 mg PO BID 14 Days #28 tab 11/16/20 Tamsulosin [Flomax] 0.4 mg PO BEDTIME 90 Days #90 cap 11/16/20 New Medications: Ciprofloxacin HCl [Cipro 500 MG Tablet] 500 mg PO BID 14 Days #28 tab Tamsulosin [Flomax] 0.4 mg PO BEDTIME 90 Days #90 cap Physician Discharge Instructions: PROBLEM: Sepsis, UTI GOAL: Clear understanding of disease process INSTRUCTIONS: Diet: Diabetic Activity: as tolerated If you have any questions regarding your stay call [phone] If your symptoms worsen call 911 or go to the ED. Medications were sent to your pharmacy
[2020-11-19 00:39] LABS: Vitamin D 1,25-Dihydroxy Total 31 pg/mL (18-72); Vitamin D,1,25-OH2, D2 <8 pg/mL
== END 2020-11-16 09:49 | disposition home or self-care (01) | DRG 872 ==
LOC: 2ND 13:47 → OBSVTOIN 11-15 07:28
PROVIDERS: ADMIT Internal Medicine; ATTEND Internal Medicine
DX: A41.9 Sepsis, unspecified organism (principal); N30.00 Acute cystitis without hematuria; E11.9 Type 2 diabetes mellitus without complications; I10 Essential (primary) hypertension; K82.9 Disease of gallbladder, unspecified; K81.9 Cholecystitis, unspecified; E86.0 Dehydration; F17.200 Nicotine dependence, unspecified, uncomplicated; E66.9 Obesity, unspecified; Z88.0 Allergy status to penicillin; Z79.82 Long term (current) use of aspirin; Z79.84 Long term (current) use of oral hypoglycemic drugs; Z79.899 Other long term (current) drug therapy; Z68.36 Body mass index [BMI] 36.0-36.9, adult
CPT/HCPCS: 36415; 71046; 71260; 74177; 76700; 78226; 80048; 80076; 80202; 81003; 81015; 82043; 82570; 82607; 82652; 82947; 83036; 83735; 84100; 84443; 85025; 85049; 85610; 85730; 87040; 87086; 87088; 87205; A9537; G0378; G0379; J0744; J1650; Q9967